=== PATIENT | male | born 1950 | race Caucasian/White ===

== ENCOUNTER → 2017-11-17 10:18 | Outpatient (CLI) | payer MEDICARE, SELFPAY ==
--- NOTE | 2017-11-17 10:36 | XR_ITS ---
XR foot RT min 3V HISTORY: Heel pain ORDERING PHYSICIAN: Jaylin Prather DPM PATIENT AGE: 67 years COMPARISON: None FINDINGS: Weightbearing views are performed. Osteoarthritic changes are present at the first metatarsophalangeal joint. Minimal hypertrophic changes are present dorsally at the midfoot. There is a thick calcaneal spur at 8 mm. There is good alignment IMPRESSION: 1. Mild osteoarthritic change. 2. Small calcaneal spur. No erosive changes 3. Otherwise negative.
--- NOTE | 2017-11-17 10:36 | XR_ITS ---
XR foot LT min 3V HISTORY: Heel pain ORDERING PHYSICIAN: Jaylin Prather DPM PATIENT AGE: 67 years COMPARISON: None FINDINGS: Weightbearing views are performed. Minor osteoarthritic changes are present at the first metatarsophalangeal joint. Minimal hypertrophic changes are present along the dorsal aspect of the foot. There is a small calcaneal spur at 8 mm. Normal alignment. IMPRESSION: Mild osteoarthritic change with small calcaneal spur
== END ==
PROVIDERS: PCP Family Medicine; Visit Provider Podiatrist
DX: M79.671 Pain in right foot (principal); M76.61 Achilles tendinitis, right leg
CPT/HCPCS: 73630

== ENCOUNTER → 2021-09-01 15:03 | Outpatient (CLI) | payer MEDICARE, SELFPAY ==
[2021-09-01 15:40] LABS: Chloride 100 mmol/L (98-107); Potassium 4.4 mmoL/L (3.5-5.1); Sodium 139 mmol/L (136-145)
[2021-09-01 15:42] LABS: Alanine Aminotransferase 38 U/L (12-78); Aspartate Amino Transferase 30 U/L (17-59); Blood Urea Nitrogen 12 mg/dl (9-20); Estimated Glomerular Filt Rate 83 ml/min (>60); GFR (African American) 100 ML/MIN (>60)
[2021-09-01 15:43] LABS: Albumin Level 4.3 g/dl (3.5-5.0); Albumin/Globulin Ratio 1.7 (1.1-1.8); Alkaline Phosphatase 69 U/L (38-126); Anion Gap 12.4 mEq/L (5-15); Bilirubin,Total 0.7 mg/dl (0.2-1.3); Calcium 9.5 mg/dl (8.4-10.2); Carbon Dioxide 31 mmol/L (22.0-30.0); Chol/HDL Ratio 2.8 (1-3.5); Cholesterol 110 mg/dl (140-200); Globulin 2.5 g/dL (1.3-3.2); Glucose 102 mg/dl (74-100); HDL Cholesterol 40 mg/dl (40-60); Total Protein,Serum 6.8 g/dl (6.3-8.2); Triglycerides 143 mg/dl (30-150); VLDL Cholesterol 29 mg/dL (0-40)
[2021-09-01 15:54] LABS: Direct LDL Cholesterol 45.76 mg/dL (100-129)
== END ==
PROVIDERS: Visit Provider Internal Medicine
DX: I48.0 Paroxysmal atrial fibrillation (principal); I10 Essential (primary) hypertension; E78.5 Hyperlipidemia, unspecified; R73.02 Impaired glucose tolerance (oral)
CPT/HCPCS: 80053; 80061

== ENCOUNTER → 2022-03-17 11:54 | Outpatient (CLI) | payer MEDICARE, SELFPAY | PROVIDERS: PCP Internal Medicine; Visit Provider Internal Medicine | DX: Z20.822 Contact with and (suspected) exposure to COVID-19 (principal) | CPT/HCPCS: 87275; 87276; C9803; U0003; U0005 ==